=== PATIENT | male | born 1970 | race Caucasian/White ===

== ENCOUNTER 2023-01-21 19:16 | Inpatient (IN) | payer BC, SELFPAY ==
[2023-01-21 19:17] VITALS: BP 144/101; PULSE 89; RESP 16; TEMP 36.9; O2SAT 95; BMI 29.4
[2023-01-21 21:54] VITALS: BP 105/79; PULSE 62; RESP 18; TEMP 36.7; O2SAT 95
[2023-01-21 22:06] LABS: Absolute Lymphocyte Count 2.03 X10^3/uL (0.83-4.51); Absolute Neutrophil Count 7.8 X10^3/uL (2.0-7.7); Basophil# 0.05 X10^3/uL; Basophil% 0.5 % (0-1); Eosinophil# 0.26 X10^3/uL; Eosinophils% 2.4 % (0-5); Hematocrit 46.4 % (40-54); Hemoglobin 16.2 g/dL (13.0-16.5); Lymphocyte # 2.03 X10^3/ul (0.83-4.51); Lymphocyte % 19.1 % (19-41); Mean Corp Hgb Conc 34.9 g/dL (32-36); Mean Corpuscular Hgb 31.1 pg (27.0-32.0); Mean Corpuscular Volume 89.1 fL (80-94); Mean Platelet Vol. 9.1 fl (6.2-12.0); Monocyte# 0.53 X10^3/uL; NRBC Flagged by Analyzer 0 % (0-5); Neutrophil # 7.75 X10^3/uL (2.7-7.7); Neutrophil % 72.7 % (47-70); Platelet Count 309 K/mm3 (150-450); RBC Distribution Width SD 42.4 fl (35.1-43.9); Red Blood Count 5.21 M/mm3 (4.6-6.2); White Blood Count 10.7 K/mm3 (4.4-11.0)
[2023-01-21] MEDS: Diphth,Pertuss(Acell),Tet Vac 0.5 ML Vial IM (22:21)
[2023-01-21 22:22] LABS: Anion Gap 8 (5-15); BUN 11 mg/dL (7-18); BUN/Creat Ratio 9.8 RATIO (10-20); Chloride 106 mmol/L (98-107); Creatinine, Serum 1.12 mg/dL (0.70-1.30); EST Glomerular Filtration Rate 73 mL/min (>60); Est Glom Filt Rate - Afr Amer 89 mL/min (>60); Estimated Creatinine Clearance 87.19 ml/min; Glucose 142 mg/dL (74-106); Potassium 3.5 mmol/L (3.5-5.1); Sodium Level 139 mmol/L (136-145)
[2023-01-21] MEDS: Lidocaine 1% (20 ml mdv) 20 ML Vial INFILT (22:29)
--- NOTE | 2023-01-21 22:41 | EDS_ITS ---
HPI History of Present Illness HPI Narrative: Patient presents with abscess to his right wrist area has been getting worse over the past 2 days. Patient went to urgent care and was referred to the emergency department because he has streaking up his arm. Urgent care was concerned that this could be MRSA. Patient admits to some subjective chills but denies any fevers. Patient states he tried squeezing the abscess area but was unable to get anything out of it. Patient states he has been taking ibuprofen w [facility] has been helping with the pain. Patient describes his pain as aching. Patient states it has been constant. Patient also has a small pustule on the volar aspect of the left distal forearm. There is no fluctuance. There is no active drainage. Chief Complaint: Wound Informant: patient Onset/Context/Timing Onset: Days (2) Context: Gradual Onset Timing: Continuous Quality of Pain: Aching Location: Right wrist Worsened by: Nothing Relieved by: Ibuprofen Associated Symptoms Associated Symptoms: Negative for Parasthesia, Weakness or Loss of Funtion Narrative Tetanus Immunization: Unknown PFSH PFSH Medical History no medical history no medical history Home Medications NK 01/21/23 [History Last Taken Unknown] Allergy/AdvReac Type Severity Reaction Status Date / Time No Known Allergies Allergy Verified 01/21/23 19:19 Surgical History no surgical history no surgical history Social History Smoking Status: Never smoker ROS ROS ED Constitutional Constitutional ED: Reports chills and subjective; Denies fever(s) Eyes Eyes: Denies blurry vision or change in vision ENT ENT ED: Denies rhinorrhea or sore throat Cardiovascular Cardiovascular: Denies chest pain or palpitations Respiratory/Chest Respiratory/Chest: Denies cough or dyspnea Gastrointestinal Gastrointestinal: Denies nausea or vomiting Genitourinary Genitourinary ED: Denies dysuria or hematuria Musculoskeletal Musculoskeletal: Denies back pain or neck pain Integumentary Reports abscess and rash Neurologic Neurologic: Denies headache(s) or weakness Allergic/Immunologic Allergic/Immunologic ED: Denies mouth swelling or urticaria EXAM Physical Exam Const Vital Signs: 01/21/23 19:17 Temperature 98.5 F Temperature Source Temporal Pulse Rate 89 Respiratory Rate 16 Blood Pressure 144/101 H Blood Pressure Mean 115 Pulse Ox 95 Oxygen Delivery Method Room Air Positive well nourished and well developed General Appearance ED: well developed and NAD HEENT Reports moist mucous membranes Neck full ROM and supple Lymph Lymphatic Narrative: There is some mild right axillary lymphadenopathy Extremity Extremity Narrative: There is tenderness, edema, and fluctuance over the radial aspect of the right distal radius. There is no active drainage noted. There is erythematous streaking going up to the right axilla. Radial pulses are equal bilaterally. Sensation was intact to light touch in the radial, median, and ulnar areas. Strength is 5/5 in the radial, median, and ulnar areas. There is also a small indurated pustule over the volar aspect of the left distal forearm. There is no fluctuance. There is no discharge or drainage. There is minimal tenderness over this area. Neuro oriented x3, CN's II-XII intact bilaterally, moves all extremities, no focal motor deficits and no sensory deficits noted Sensorium / Orientation: alert Motor Exam: strength 5/5 throughout Psych mental status grossly normal MDM MDM MDM Narrative Medical decision making narrative: Differential diagnosis includes lymphangitis, abscess, and cellulitis. CBC will be obtained to assess for leukocytosis or anemia. Basic metabolic profile will be obtained to assess for electrolyte abnormality and renal function. Blood cultures will be obtained to assess for bacteremia and sepsis. Lab Data Lab results narrative: CBC was reviewed and was within normal limits. Basic metabolic profile was reviewed and was within normal limits. Labs: Laboratory Results - last 24 hr 01/21/23 01/21/23 21:55 21:55 WBC 10.7 RBC 5.21 Hgb 16.2 Hct 46.4 MCV 89.1 MCH 31.1 MCHC 34.9 RDW Std Deviation 42.4 RDW Coeff of Mattie 13.0 Plt Count 309 MPV 9.1 Immature Gran % (Auto) 0.300 Neut % (Auto) 72.7 H Lymph % (Auto) 19.1 [place] % (Auto) 5.0 Eos % (Auto) 2.4 Baso % (Auto) 0.5 Absolute Neuts (auto) 7.8 H Absolute Lymphs (auto) 2.03 Nucleated RBC % 0 Sodium 139 Potassium 3.5 Chloride 106 Carbon Dioxide 25.0 Anion Gap 8 BUN 11 Creatinine 1.12 Estim Creat Clear Calc 87.19 Est GFR (MDRD) Af Amer 89 Est GFR (MDRD) Non-Af 73 BUN/Creatinine Ratio 9.8 L Glucose 142 H Calcium 9.0 Treatment and Re-Evaluation Narrative: The abscess over the right wrist was cleaned and anesthetized with 1% plain lidocaine locally. The abscess was opened with an 11 blade scalpel with a cruciate incision. Moderate amount of purulent drainage was expressed. Hemostats were used to break up loculations. The abscess was irrigated with normal saline. Bacitracin dressing was applied. Patient was given a dose of Ancef and vancomycin here. Patient was also given tetanus booster. Case was discussed with the hospitalist. Discharge Plan Dx/Rx/DC Orders Clinical Impression: Lymphangitis of upper extremity, Abscess of skin of right wrist Disposition Disposition: Acute Care Hospital [facility]
--- NOTE | 2023-01-21 23:01 | PCM.HP.STD ---
HPI - General General Date of Admission: 01/21/23 Date of Service: 01/21/23 Chief Complaint: R wrist redness, abscess with streaking. HPI Narrative The patient is a 52 y/o M w/ PMHx: EtOH Abuse (3-4 beers daily) who presents to the [facility] ED on 01/21/23 with history of recent abscess to the right wrist which has been worsening of the past 2 days with recent urgent care evaluation and eventual referral to the ED secondary to streaking up his arms with subjective chills without any specific fevers with patient attempting to squeeze the area of the abscess but unable to express anything from it with self administration of ibuprofen which has been assisting with the pain but he describes discomfort ongoing with aching and constant in addition to a small pustule on the volar aspect of the left distal forearm with no fluctuant or active drainage prompting eventual ED evaluation. 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 He notes the discomfort is significantly worsened with any palpation attempt and reports it is sharp stabbing 10 out of 10 otherwise pain is primarily dull aching throb 3 out of 10 in severity at rest. Work-up in the ED included T98.5, heart rate 89, BP 144/101, respiratory rate 16, 95% on room air, CBC with WC 10.7, hemoglobin 16.2, platelet 309 with left shift, BMP with glucose 142 otherwise not marked appearing, blood culture x2 pending per ED. in the ED patient administered IV vancomycin, Ancef, tetanus update. [facility] Medical History Alcohol abuse Medical History no medical history Home Medications NK 01/21/23 [History Last Taken Unknown] Allergy/AdvReac Type Severity Reaction Status Date / Time No Known Allergies Allergy Verified 01/21/23 19:19 Family History (Updated 01/22/23 @ 02:[address] Elenita Triplett MD) Son Diabetes Diabetes mellitus type I Father Prostate CA other (Denies any marked maternal family history including HD, DM, CA.) Surgical History (Updated 01/22/23 @ 02:[address] Elenita Triplett MD) History of dental surgery Surgical History no surgical history Social History (Updated 01/22/23 @ 02:[address] 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 substance use type: does not use ROS ROS Narrative Admission Review of Systems: CONSTITUTIONAL: No weight loss, fever, + chills, weakness or fatigue. HEENT: Eyes: No visual loss, blurred vision, double vision or yellow sclerae. Ears, Nose, Throat: No hearing loss, sneezing, congestion, runny nose or sore throat. SKIN: + Bilateral wrist erythema, induration and abscess although left is significantly less notable in size, right wrist with significant medial indurated region with mild purulent discharge status post I&D but not marked, significantly tender with lymphangitic streaks up the arm. CARDIOVASCULAR: No chest pain, chest pressure or chest discomfort, palpitations, edema, orthopnea, syncopal events. RESPIRATORY: No shortness of breath, cough or sputum, wheezing, hemoptysis. GASTROINTESTINAL: No anorexia, nausea, vomiting or diarrhea, abdominal pain, melena, BRBPR. GENITOURINARY: No dysuria, frequency, urgency or retention. NEUROLOGICAL: No headache, dizziness, syncope, paralysis, ataxia, numbness or tingling in the extremities, focal weakness, change in bowel or bladder control, seizure. MUSCULOSKELETAL: + muscle, back pain, joint pain or stiffness. HEMATOLOGIC: No anemia, bleeding or bruising. LYMPHATICS: No enlarged nodes. No history of splenectomy. PSYCHIATRIC: No history of depression or anxiety. ENDOCRINOLOGIC: No reports of sweating, cold or heat intolerance. No polyuria or polydipsia. ALLERGIES: No history of asthma, hives, eczema or rhinitis. Vital Signs Vital Signs Vital Signs: 01/21/23 19:17 Temperature 98.5 F Temperature Source Temporal Pulse Rate 89 Respiratory Rate 16 Blood Pressure 144/101 H Blood Pressure Mean 115 Pulse Ox 95 Oxygen Delivery Method Room Air Weight Weight: 223 lb Body Mass Index (BMI) 29.4 Physical Exam Narrative Physical Examination: General: Awake, alert, oriented x 3 and cooperative, seated upright in bed, mildly uncomfortable appearing Skin: Normal color, normal turgor, no icterus, no cyanosis except + Bilateral wrist erythema, induration and abscess although left is significantly less notable in size, right wrist with significant medial indurated region with mild purulent discharge status post I&D but not marked, significantly tender with lymphangitic streaks up the arm. HEENT: AT/NC, EOMI, PERRLA, mildly dry MM, no carotid bruits or JVD noted. Lungs: Mildly diminished, greater bases, appropriate for, no rales, ronchi or wheezing. Heart: Currently regular rate and rhythm; no gallop, rub audible. Abdomen: Soft, overweight NTTP, ND, mildly hyperactive BS, no HSM. Extremities: No cyanosis, no clubbing, see skin. Neurological: Patient awake, alert, oriented as noted, cognitive function intact; pupils equally reactive to light and accommodation, cranial nerves II-XII grossly normal, moving all 4 extremities, no focal deficits, strength mildly globally decreased secondary to acute presentation complaint. Psychiatric: Affect appears fatigued, uncomfortable no acute evidence of depressive or anxiety feelings. Results Lab / Micro Data Result Diagrams: 01/21/23 21:55 01/21/23 21:55 Labs: Laboratory Results - last 24 hr 01/21/23 21:55: WBC 10.7, RBC 5.21, Hgb 16.2, Hct 46.4, MCV 89.1, MCH 31.1, MCHC 34.9, RDW Std Deviation 42.4, RDW Coeff of Mattie 13.0, Plt Count 309, MPV 9.1, Immature Gran % (Auto) 0.300, Neut % (Auto) 72.7 H, Lymph % (Auto) 19.1, [place] % (Auto) 5.0, Eos % (Auto) 2.4, Baso % (Auto) 0.5, Absolute Neuts (auto) 7.8 H, Absolute Lymphs (auto) 2.03, Nucleated RBC % 0 01/21/23 21:55: Sodium 139, Potassium 3.5, Chloride 106, Carbon Dioxide 25.0, Anion Gap 8, BUN 11, Creatinine 1.12, Estim Creat Clear Calc 87.19, Est GFR (MDRD) Af Amer 89, Est GFR (MDRD) Non-Af 73, BUN/Creatinine Ratio 9.8 L, Glucose 142 H, Calcium 9.0 Assessment & Plan Assessment/Plan (1) Abscess of skin of right wrist: PLAN: Plan The patient is a 52 y/o M w/ PMHx: EtOH Abuse (3-4 beers daily) who presents to the [facility] ED on 01/21/23 with history of recent abscess to the right wrist which has been worsening of the past 2 days with recent urgent care evaluation and eventual referral to the ED secondary to streaking up his arms with subjective chills without any specific fevers with patient attempting to squeeze the area of the abscess but unable to express anything from it with self administration of ibuprofen which has been assisting with the pain but he describes discomfort ongoing with aching and constant in addition to a small pustule on the volar aspect of the left distal forearm with no fluctuant or active drainage prompting eventual ED evaluation. #1. Right Upper Extremity Cellulitis/wrist with concern for abscess, small L forearm nondraining abscess: Will admit to medical surgical floor, maintain on IV vancomycin will obtain Wound Cx, will obtain Wound MRSA PCR if onset purulent drainage w/ screen also requested, plastic surgery consultation requested for possible I&D, plan repeat CBC in AM, continue affected extremity elevation above heart when seated and in bed, monitor erythema outline with VS checks, as needed pain regimen as well as antiemetic. #2. Elevated BP without HTN diagnosis: Patient denies any hypertensive history, BP elevated above goal upon ED presentation, potentially related with pain and acute presentation #1, we will continue to monitor and in the interim we will maintain on as needed IV hydralazine. #3 hyperglycemia: Admission glucose 142, no DM history, likely associated with acute presentation, HgBA1c pending. #4. EtOH Abuse: Patient notes routine consumption of at least 3-4 beers per day. Will maintain on CIWA protocol, MVI, thiamine and folic acid. Strongly encouraged decreased alcohol intake versus sobriety. Magnesium and phosphorus levels requested. account support manager consultation for substance abuse assist. Patient reports being able to go several days without any alcohol withdrawal symptoms. #5. DVT prophylaxis: SCDs pending surgery evaluation in case of OR needs. Admission Evaluation Time spent evaluating chart, patient history, patient evaluation, care planning and discussion with specialists: 60 minutes. Charges/Coding Visit Charges Inpatient E&M: 72686 Init Hosp L2
[2023-01-21] MEDS: Cefazolin 1 GM/50 ML BAG IV (23:46)
[2023-01-22] VITALS (11 sets, daily range): BP systolic 119–154; BP diastolic 76–91; PULSE 49–82; RESP 12–18; TEMP 36.2–36.9; O2SAT 96–100; BMI 28.5
--- NOTE | 2023-01-22 01:41 | PCM.RX.CS ---
Consult Pharmacy has been consulted to manage selected antiobiotic: Vancomycin Type of Consult: New start Suspected Infection: Skin/Soft tissue Labs: Sodium 139 mmol/L (136-145) 01/21/23 21:55 Potassium 3.5 mmol/L (3.5-5.1) 01/21/23 21:55 Chloride 106 mmol/L (98-107) 01/21/23 21:55 Carbon Dioxide 25.0 mmol/L (21.0-32.0) 01/21/23 21:55 Anion Gap 8 (5-15) 01/21/23 21:55 BUN 11 mg/dL (7-18) 01/21/23 21:55 Creatinine 1.12 mg/dL (0.70-1.30) 01/21/23 21:55 Est GFR (MDRD) Af Amer 89 mL/min (>60) 01/21/23 21:55 Est GFR (MDRD) Non-Af 73 mL/min (>60) 01/21/23 21:55 BUN/Creatinine Ratio 9.8 RATIO (10-20) L 01/21/23 21:55 Glucose 142 mg/dL (74-106) H 01/21/23 21:55 Goal Trough: 15-20 mcg/mL Pharmacy Plan for Drug Dosing: Pharmacy Service will continue to monitor and adjust dosing as required. Medications Vancomycin HCl 2,000 mg/ (Sodium Chloride) 540 mls @ 250 mls/hr IV Q12H KAREEM Discontinued Medications Vancomycin HCl 1,500 mg/ (Sodium Chloride) 530 mls @ 250 mls/hr IV X1 ONE Stop: 01/21/23 23:58 Last Admin: 01/21/23 22:26 Dose: 250 mls/hr Follow-Up Labs: Trough Vancomycin Labs to be done on [date and time ordered]: 01/23 @ 1555
[2023-01-22 02:02] LABS: Magnesium 1.8 mg/dL (1.6-2.6); Phosphorus 1.9 mg/dL (2.5-4.9)
[2023-01-22] MEDS: 0.9% Normal Saline 1,000 ML 125 ML IV (03:03)
[2023-01-22 03:20] LABS: Probe Check PASS; Staph aureus DNA By PCR POSITIVE (Negative)
[2023-01-22 03:21] LABS: M R Staph aureus DNA By PCR POSITIVE (Negative)
[2023-01-22 05:50] LABS: Absolute Lymphocyte Count 2.05 X10^3/uL (0.83-4.51); Absolute Neutrophil Count 4.7 X10^3/uL (2.0-7.7); Basophil# 0.04 X10^3/uL; Basophil% 0.5 % (0-1); Eosinophil# 0.33 X10^3/uL; Eosinophils% 4.2 % (0-5); Hemoglobin 14.5 g/dL (13.0-16.5); Lymphocyte # 2.05 X10^3/ul (0.83-4.51); Lymphocyte % 26.2 % (19-41); Mean Corp Hgb Conc 33.7 g/dL (32-36); Mean Corpuscular Hgb 30.8 pg (27.0-32.0); Mean Corpuscular Volume 91.3 fL (80-94); Monocyte# 0.63 X10^3/uL; Monocyte% 8.1 % (0-10); NRBC Flagged by Analyzer 0 % (0-5); Neutrophil # 4.73 X10^3/uL (2.7-7.7); Neutrophil % 60.6 % (47-70); Platelet Count 268 K/mm3 (150-450); RBC Distribution Width CV 13.2 % (11.6-14.6); RBC Distribution Width SD 44.3 fl (35.1-43.9); Red Blood Count 4.71 M/mm3 (4.6-6.2); White Blood Count 7.8 K/mm3 (4.4-11.0)
[2023-01-22 06:28] LABS: AST(SGOT) 11 U/L (15-37); Alanine Aminotransfer ALT/SGPT 17 U/L (16-61); Albumin, Serum 2.9 g/dL (3.2-5.0); Alkaline Phosphatase 91 U/L (45-117); Anion Gap 7 (5-15); BUN 10 mg/dL (7-18); BUN/Creat Ratio 11.2 RATIO (10-20); Chloride 108 mmol/L (98-107); Creatinine, Serum 0.89 mg/dL (0.70-1.30); EST Glomerular Filtration Rate 95 mL/min (>60); Est Glom Filt Rate - Afr Amer 115 mL/min (>60); Estimated Creatinine Clearance 109.73 ml/min; Glucose 112 mg/dL (74-106); Protein, Total 5.9 g/dL (6.4-8.2); Sodium Level 139 mmol/L (136-145)
[2023-01-22 08:00] LABS: Hemoglobin A1c 5.2 % (3.8-5.6)
--- NOTE | 2023-01-22 09:15 | PN.HOSP_ITS ---
Reason for Visit Reason for Visit: Diagnoses Cutaneous abscess of right upper limb (01/21/23) Subjective Subjective Patient is a 53-year-old gentleman admitted with swelling and redness involving the right wrist Objective Data Objective Data Vital Signs: Vital Signs Temp Pulse Resp BP Pulse Ox O2 Del Method 97.8 F 49 L 14 119/81 H 98 Room Air 01/22/23 05:59 01/22/23 05:59 01/22/23 05:59 01/22/23 05:59 01/22/23 07:26 01/22/23 07:26 Oxygen Delivery Method Room Air Weight: 98.3 kg Body Mass Index (BMI) 28.5 Intake & Output: Intake and Output for Last 24 Hours 01/20/23 01/21/23 01/22/23 23:59 23:59 23:59 Intake Total 837 / 837 Balance 837 / 837 Lab / Micro Data Result Diagrams: 01/22/23 05:24 01/22/23 05:24 Labs: Laboratory Results - last 24 hr 01/21/23 21:55: WBC 10.7, RBC 5.21, Hgb 16.2, Hct 46.4, MCV 89.1, MCH 31.1, MCHC 34.9, RDW Std Deviation 42.4, RDW Coeff of Mattie 13.0, Plt Count 309, MPV 9.1, Immature Gran % (Auto) 0.300, Neut % (Auto) 72.7 H, Lymph % (Auto) 19.1, [place] % (Auto) 5.0, Eos % (Auto) 2.4, Baso % (Auto) 0.5, Absolute Neuts (auto) 7.8 H, Absolute Lymphs (auto) 2.03, Nucleated RBC % 0 01/21/23 21:55: Sodium 139, Potassium 3.5, Chloride 106, Carbon Dioxide 25.0, Anion Gap 8, BUN 11, Creatinine 1.12, Estim Creat Clear Calc 87.19, Est GFR ( RD) Af Amer 89, Est GFR (MDRD) Non-Af 73, BUN/Creatinine Ratio 9.8 L, Glucose 142 H, Calcium 9.0 01/21/23 21:55: Phosphorus 1.9 L, Magnesium 1.8 01/22/23 01:00: S.aureus Protein A PCR POSITIVE H, MRSA (PCR) POSITIVE H 01/22/23 05:24: WBC 7.8, RBC 4.71, Hgb 14.5, Hct 43.0, MCV 91.3, MCH 30.8, MCHC 33.7, RDW Std Deviation 44.3 H, RDW Coeff of Mattie 13.2, Plt Count 268, MPV 9.0, Immature Gran % (Auto) 0.400, Neut % (Auto) 60.6, Lymph % (Auto) 26.2, [place] % (Auto) 8.1, Eos % (Auto) 4.2, Baso % (Auto) 0.5, Absolute Neuts (auto) 4.7, Absolute Lymphs (auto) 2.05, Nucleated RBC % 0 01/22/23 05:24: Sodium 139, Potassium 4.0, Chloride 108 H, Carbon Dioxide 24.0, Anion Gap 7, BUN 10, Creatinine 0.89, Estim Creat Clear Calc 109.73, Est GFR (MDRD) Af Amer 115, Est GFR (MDRD) Non-Af 95, BUN/Creatinine Ratio 11.2, Glucose 112 H, Calcium 8.0 L, Total Bilirubin 0.60, AST 11 L, ALT 17, Alkaline Phosphatase 91, Total Protein 5.9 L, Albumin 2.9 L, Globulin 3.0, Albumin/Globulin Ratio 1.0 01/22/23 05:24: Hemoglobin A1c 5.2 Physical Exam Narrative GENERAL: cooperative HEENT: Atraumatic; normocephalic EYES; Anicteric, Normal Conjunctiva NECK; supple, normal thyroid, RESPIRATORY: Diminished to auscultation CARDIOVASCULAR: Regular S1 S2, GI: soft, normoactive bowel sounds, : No Renal angle tenderness; EXTREMITIES: Area of induration on the lateral aspect of the right wrist with an open wound MUSCULOSKELETAL: no muscle wasting NEURO: Awake; no lateralizing signs. SKIN: No Rash PSYCH; Flat affect Assessment & Plan Assessment/Plan (1) Abscess of skin of right wrist: PLAN: Plan Patient is a 53-year-old gentleman admitted with swelling and redness involving the right wrist 1. Right upper extremity cellulitis involving the wrist with concern for abscess ?. Patient started on broad-spectrum antibiotic therapy with vancomycin for possible concern for MRSA. Consult placed to plastic surgery for possible I&D 2.Chronic alcohol dependence ? Counseled on cessation 3. Elevated blood pressure ? On admission has since resolved . DVT prophylaxis ? Low risk did encourage early ambulation Time spent in the patient's overall evaluation,decision-making process, review of diagnostic data, adjustment of management, discussion with other providers, nursing nursing and ancillary staff involved in patient's care documentation, 35 Minutes Charges/Coding Visit Charges Inpatient E&M: 40938 Subs Hosp L2
--- NOTE | 2023-01-22 11:20 | CASEMGMT ---
RN CM Face to Face with patient for initial transition planning/care coordination assessment. RN CM introduced self and role at [facility]. Patient lying in bed, alert and oriented. Patient willing to participate in assessment and is able to answer all questions appropriately. Care providers, pharmacy, and demographics verified. Patient wishes to discharge home, denies need for home health at this time. Patient states he has no further needs or concerns at this time. CM to follow for discharge planning needs that may arise. PCP: Shahzad Diamond Specialists: none Preferred Pharmacy: [facility] retail at discharge. Insurance: [employer] Prescription Benefit: yes Living Will/HPOA: Xochitl Elliott LNOK: Living Arrangements: Patient lives with in a 2 story home. Patient states he is independent and able to ambulate stairs. Transportation: self, DME/HHC: Patient denies DME in the home. No previous HHC or SNF Disposition Plan: Patient to discharge home with family support and follow-up plans in place. Kailey WALTERN, RN, CM
--- NOTE | 2023-01-22 11:53 | NURSING ---
presurgery checklist completed. pt text family. up to void. vs done. pt to or via bed for i&d.
[2023-01-22 12:17] LABS: M R Staph aureus DNA By PCR POSITIVE (Negative); Probe Check PASS
[2023-01-22] MEDS: Lactated Ringers 1,000 ML 15 ML IV (12:21)
[2023-01-22] MEDS: Lidocaine 1% /Epi 1:100 (20ml) 20 ML Vial (12:55)
--- NOTE | 2023-01-22 13:15 | ABS_PTH ---
PATIENT: MOLLY MIRANDA LOC: [facility] U#:[id number] AGE/SX: 52/M ROOM: [facility] RE01/21/[address]: Dr. Piotr Martinez DO : 1970 BED: 1 DIS: 01/24/2023 SPEC #: [id number] RECD: 01/22/23 16:43 STATUS: FREIDA RESanjuanita #: [id number] DAE: 01/22/23 13:[address]: Pb Love DEPT: SURGICAL PATHOLOGY RECD BY: Dejuan Asencio ENTERED: 01/23/23 08:09 SP TYPE: Abscess OTHR DR: MD Dr. Balwinder Dumont MD No Primary Care Phys Tissues: A - Wrist, NOS B - Forearm, NOS Procedures: Surgery Specimen Level IV HEADER OPERATION: Incision, drainage abscess PRE-OP DIAGNOSIS: Abscess of skin TISSUE SUBMITTED: A ? Right wrist abscess soft tissue, B ? Left forearm abscess soft tissue MICROSCOPIC DIAGNOSIS A. Right wrist abscess soft tissue, biopsy: Skin and soft tissue with ulceration, acute and chronic inflammation and abscess formation. B. Left forearm abscess, biopsy: Skin and soft tissue with ulceration. Skin and soft tissue with ulceration, acute and chronic inflammation and abscess formation. AM:odilon 01/26/2023 MICROSCOPIC DESCRIPTION Slides are reviewed. GROSS DESCRIPTION A - Received in fixative is one container labeled with the patient's name and designated right wrist abscess tissue. The specimen consists of a piece of skin with underlying tissue measuring 2.5 x 2.2 cm and up to 1.0 cm in thickness. The skin surface shows central area of ulceration. Kennel Operator sections are submitted in one cassette. B - Received in fixative is one container labeled with the patient's name and designated left forearm abscess soft tissue. The specimen consists of a piece of skin with underlying tissue measuring 1.1 x 1.0 cm and up to 1.0 cm in thickness. The skin surface shows central area of ulceration. The specimen is bisected and submitted entirely in one cassette. / SJ:odilon 01/23/2023 TC:2 CPT: 08564 x2
--- NOTE | 2023-01-22 13:28 | PCM.CONS.GEN ---
Assessment & Plan Assessment/Plan (1) Abscess of skin of right wrist: (2) Abscess of left forearm: (3) MRSA (methicillin resistant Staphylococcus aureus) infection: PLAN: Plan Medical records reviewed. Labs reviewed. He is currently on Vancomycin for MRSA. It is recommended to take the patient to surgery urgently today to minimize spread of the infection to his hands and proximally to the elbow.? Delaying operative intervention would increase the risk of worsening infection which can be life threatening, suboptimal healing that may affect hand function bilaterally, and depending on the severity of the worsening of the infection, possible amputation. Patient voices understanding of the severity of the infection and wishes to proceed with operative intervention today.? He understands that the wounds will be left open and wound care started with Silver dressing changes. Surgery will be done under general anesthesia and possible tourniquet control. Tissue that is excised and debrided will be sent to Pathology for analysis to rule out carcinoma and to Microbiology for culture. A positive culture will necessitate antibiotic therapy. Patient was informed of the risks and complications of the procedure including alternatives to surgery.? These were discussed with the patient personally.? Patient voices understanding and wishes to proceed. Some of the risks and complications that were discussed included but were not inclusive of failure to diagnose including symptom relief, pain, infection, numbness, stiffness, loss of digit, RSD (CRPS), need for further surgery, contracture, and wound healing problems. Anticipate increased metabolic demands from the infection and the surgical wounds. Encourage nutritional supplementation with protein to help the healing process. Patient states he lives 3 hours away in [place], [place]. He can followup with his PCP after discharge who can refer him to a local wound care center. The wounds should heal in without need for further surgery. However, if there is a plateau during the healing process, can proceed with delayed closure with skin grafting. HPI Consult Data Date of Consult: 01/22/23 PCP / Referring MD: Elenita Triplett MD HPI Narrative Reason for Consultation: MRSA abscess right wrist and distal left forearm HPI Narrative: MOLLY MIRANDA, is a 52 M who presented with painful masses on his right wrist and left distal forearm that have increased in size over the last few days as well as showing increased redness and pain and swelling. He denies trauma. 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 [place] place of employment [place]. Develops moisture and sweating around his hands and wrist at the end of his shift. He denied fever at home. He was admitted and started on IV Vancomycin. DNA by PCR swab was done and was positive for MRSA. His WBC in the ED was 10.7. I was asked to evaluate this patient for surgical options for treatment. [facility] Medical History (Updated 01/24/23 @ 22:[address] Pb Love MD) Abscess of left forearm Abscess of skin of right wrist Alcohol abuse MRSA (methicillin resistant Staphylococcus aureus) infection Open wound of left forearm Open wound of right wrist Medical History no medical history Home Medications doxycycline hyclate 100 mg capsule (Vibramycin) 100 mg PO BID #28 caps 01/24/23 [Rx Last Taken Unknown] Allergy/AdvReac Type Severity Reaction Status Date / Time No Known Allergies Allergy Verified 01/21/23 19:19 Family History Son Diabetes Diabetes mellitus type I Father Prostate CA Family History other Surgical History History of dental surgery Surgical History no surgical history Social History household members: spouse housing: house number of children: 6 current occupational status: employed 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 substance use type: does not use ROS ROS Narrative REVIEW OF SYSTEMS General - Denies fever, fatigue, and weight loss. Eyes - Denies cataracts and glaucoma. ENT - Denies nasal congestion and sore throat. Endocrine - Denies excessive thirst and urination. Skin - Denies suspicious lesions and skin cancer. Musculoskeletal - Denies joint pain, joint stiffness, weakness of muscles and joints, back pain, and arthritis. Neuro - Denies headaches. Cardiovascular - Denies chest pain, fatigue, and shortness of breath with exertion. Psych - Denies anxiety and depression. Respiratory - Denies chronic cough and shortness of breath. Gastrointestinal - Denies nausea, vomiting, diarrhea, and constipation. Hematologic - Denies abnormal bruising and bleeding. Genitourinary - Denies hematuria and urinary frequency. Physical Exam Narrative PHYSICAL EXAMINATION General - Alert and Oriented. HEENT - PERRL. EOMI. Throat is clear. Neck - Supple and nontender. No cervical adenopathy. Lungs - Clear to auscultation. Heart - Regular rate and rhythm. Abdomen - Soft and nondistended. Extremities - FROM. No axillary adenopathy. Radial pulses are palpable. Patient is right hand dominant. On the radial aspect right wrist is an area of redness and swelling and fluctuance. Tender to palpation. Measures 3 cm. On the volar radial aspect distal left forearm is an area of redness and swelling and fluctuance. Tender to palpation. Measures 1.5 cm. Neuro - CN II-XII grossly intact. Psych - Normal mood and affect. Medical Records Data Attestation: I reviewed the patient's medical records Lab / Micro Data Attestation: I reviewed the patient's lab results. Result Diagrams: 01/24/23 06:09 01/24/23 06:09 Labs: Laboratory Results - last 24 hr 01/21/23 21:55: WBC 10.7, RBC 5.21, Hgb 16.2, Hct 46.4, MCV 89.1, MCH 31.1, MCHC 34.9, RDW Std Deviation 42.4, RDW Coeff of Mattie 13.0, Plt Count 309, MPV 9.1, Immature Gran % (Auto) 0.300, Neut % (Auto) 72.7 H, Lymph % (Auto) 19.1, Cassia % (Auto) 5.0, Eos % (Auto) 2.4, Baso % (Auto) 0.5, Absolute Neuts (auto) 7.8 H, Absolute Lymphs (auto) 2.03, Nucleated RBC % 0 01/21/23 21:55: Sodium 139, Potassium 3.5, Chloride 106, Carbon Dioxide 25.0, Anion Gap 8, BUN 11, Creatinine 1.12, Estim Creat Clear Calc 87.19, Est GFR (MDRD) Af Amer 89, Est GFR (MDRD) Non-Af 73, BUN/Creatinine Ratio 9.8 L, Glucose 142 H, Calcium 9.0 01/21/23 21:55: Phosphorus 1.9 L, Magnesium 1.8 01/22/23 01:00: S.aureus Protein A PCR POSITIVE H, MRSA (PCR) POSITIVE H 01/22/23 05:24: WBC 7.8, RBC 4.71, Hgb 14.5, Hct 43.0, MCV 91.3, MCH 30.8, MCHC 33.7, RDW Std Deviation 44.3 H, RDW Coeff of Mattie 13.2, Plt Count 268, MPV 9.0, Immature Gran % (Auto) 0.400, Neut % (Auto) 60.6, Lymph % (Auto) 26.2, Cassia % (Auto) 8.1, Eos % (Auto) 4.2, Baso % (Auto) 0.5, Absolute Neuts (auto) 4.7, Absolute Lymphs (auto) 2.05, Nucleated RBC % 0 01/22/23 05:24: Sodium 139, Potassium 4.0, Chloride 108 H, Carbon Dioxide 24.0, Anion Gap 7, BUN 10, Creatinine 0.89, Estim Creat Clear Calc 109.73, Est GFR (MDRD) Af Amer 115, Est GFR (MDRD) Non-Af 95, BUN/Creatinine Ratio 11.2, Glucose 112 H, Calcium 8.0 L, Total Bilirubin 0.60, AST 11 L, ALT 17, Alkaline Phosphatase 91, Total Protein 5.9 L, Albumin 2.9 L, Globulin 3.0, Albumin/Globulin Ratio 1.0 01/22/23 05:24: Hemoglobin A1c 5.2 01/22/23 09:40: MRSA (PCR) POSITIVE H Micro: Microbiology 01/22/23 01:00 Wound Abcess - Arm Right Gram Stain - Final Charges/Coding Visit Charges Inpatient E&M: 02752 Init Hosp L3 (57 Modifier ICD-10 - L02.413, L02.414, A49.02)
--- NOTE | 2023-01-22 14:39 | PCM.OPRPT ---
Problems Associated Problem List Diagnoses (1) Abscess of skin of right wrist: (2) Abscess of left forearm: (3) Open wound of left forearm: (4) MRSA (methicillin resistant Staphylococcus aureus) infection: (5) Open wound of right wrist: Report of Operation Date of Procedure: 01/22/23 Pre-Operative Diagnosis: 1. MRSA abscess right radial wrist. 2. MRSA abscess volar radial aspect distal left forearm. Post-Operative Diagnosis: 1. MRSA abscess right radial wrist. 2. MRSA abscess volar radial aspect distal left forearm. 3. Open surgical MRSA abscess wound right radial wrist. 4. Open surgical MRSA abscess wound volar radial aspect distal left forearm. Surgery/Procedure Performed:: 1. Surgical preparation right radial wrist with incision and drainage and excisional debridement MRSA abscess (7.5 cm2). 2. Surgical preparation volar radial aspect distal left forearm with incision and drainage and excisional debridement MRSA abscess (1.44 cm2). Description of Surgical Findings:: MOLLY MIRANDA, is a 52 M who presented with painful masses on his right wrist and left distal forearm that have increased in size over the last few days as well as showing increased redness and pain and swelling.? He denies trauma.? 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 His place of employment [place].? Develops moisture and sweating around his hands and wrist at the end of his shift.? He denied fever at home.? He was admitted and started on IV Vancomycin.? Wound DNA by PCR swab was done and was positive for MRSA.? His WBC in the ED was 10.7.? I was asked to evaluate this patient for surgical options for treatment. It is recommended to take the patient to surgery urgently today to minimize spread of the infection to his hands and proximally to the elbow. Delaying operative intervention would increase the risk of worsening infection which can be life threatening, suboptimal healing that may affect hand function bilaterally, and depending on the severity of the worsening of the infection, possible amputation. Patient voices understanding of the severity of the infection and wishes to proceed with operative intervention today. He understands that the wounds will be left open and wound care started with Silver dressing changes. Patient was informed of the risks and complications of the procedure including alternatives to surgery. These were discussed with the patient personally. Patient voices understanding and wishes to proceed. Some of the risks and complications that were discussed included but were not inclusive of failure to diagnose including symptom relief, pain, infection, numbness, stiffness, loss of digit, RSD (CRPS), need for further surgery, contracture, and wound healing problems. Size of wound right radial wrist - 3 x 2.5 x 0.5 cm. Size of wound volar radial aspect distal left forearm - 1.2 x 1.2 x 0.5 cm. Surgeon: Pb Love MD sausage smoker: None Type of Anesthesia: General Anesthesiologist: Keith Bain MD and Codie Gandhi CRNA Specimen's removed: 1. MRSA abscess right radial wrist to Pathology and Microbiology. 2. MRSA abscess volar radial aspect distal left forearm to Pathology and Microbiology. Drains: None. Estimated Blood Loss (mL): 20. Description of Procedure: Patient was taken to OR in supine position and was placed under general anesthesia. Tourniquets were applied. Both upper extremities were prepped and draped in the usual fashion. SCD's were placed for DVT prophylaxis. Perioperative antibiotics were given intravenously. Using xylocaine with epinephrine, the abscesses right radial wrist and volar radial aspect distal left forearm were infiltrated. After waiting 5 minutes for the anesthetic to take effect, I proceeded with surgical preparation with incision and drainage and excisional debridement MRSA abscesses. On the right radial wrist, the pus extended down to the first extensor compartment. The tendons (abductor pollicis longus (APL) and extensor pollicis brevis (EPB)) did not appear to be involved with the infection. The superficial sensory branch radial nerve was seen and preserved. The bleeding was easily controlled with gentle gauze compression and electrocautery so the tourniquet was not applied to the right arm. Half the soft tissue was sent to Pathology for analysis to rule out carcinoma and half the soft tissue was sent to Microbiology for culture. A positive culture will necessitate antibiotic therapy. The size of the wound right radial wrist after incision and drainage and excisional debridement of the MRSA abscess was 3 x 2.5 x 0.5 cm or 7.5 cm2. I then made a circular incision around the abscess volar radial aspect distal left forearm down into the subcutaneous tissue. A lot of thickened pus was seen. It extended down to the flexor carpi radialis (FCR) tendon sheath. The tendon did not appear to be involved with the infection. The bleeding was easily controlled with gentle gauze compression and electrocautery so the tourniquet was not applied to the left arm as well. Half the soft tissue was sent to Pathology for analysis to rule out carcinoma and half the soft tissue was sent to Microbiology for culture. A positive culture will necessitate antibiotic therapy. The size of the wound volar radial aspect distal left forearm after incision and drainage and excisional debridement of the MRSA abscess was 1.2 x 1.2 x 0.5 cm or 1.44 cm2. Both MRSA abscess wounds were dressed with Mepitel nonadherent dressing followed by 4x4 gauze and Betadine followed by dry Kerlix gauze and a compression tressa wrap. Patient tolerated the procedure well and was sent to PACU in satisfactory condition. Patient will be sent upstairs for continued postop care. Will change the dressings tomorrow with Silver dressings. After discharge he will followup at a Wound Center close to his home in [place]. Based on the culture results antibiotic modification may be necessary. He was treated perioperatively with Vancomycin. He will be encouraged to proceed with range of motion exercises to minimize stiffness. If there is a plateau during the healing process, then can proceed with delayed closure with skin grafting. Grafts/Implants Used: None. Procedure Start Time: 13:55 Procedure Stop Time: 14:28 Complications None. Admit VTE Documentation VTE Present on Admission: No VTE Mechan Device Prophylaxis: SCD's VTE Pharm Prophylaxis ordered?: No Addendum Addendum: Surgery Charges CPT - 43241 ICD-10 - S61.501A, S51.802A, L02.413, L02.414, A49.02 36436 L02.413, S61.501A, A49.02 88502 L02.414, S51.802A, A49.02
[2023-01-22] MEDS: Famotidine 20 MG Tablet PO ×2 (17:55→22:48)
[2023-01-22] MEDS: Thiamine Hydrochloride 100 MG Tablet PO (17:55)
[2023-01-22] MEDS: oxyCODONE 5 MG Tablet PO (17:55)
[2023-01-22] MEDS: Multivitamins,Therapeutic Tablet 1 TABLET PO (17:55)
[2023-01-22] MEDS: Folic Acid 1 MG Tablet PO (17:55)
[2023-01-23] VITALS (10 sets, daily range): BP systolic 115–133; BP diastolic 60–91; PULSE 57–72; RESP 14–18; TEMP 36.4–36.9; O2SAT 95–98
[2023-01-23] MEDS: 0.9% Saline Lock 10 ML Syringe IV ×2 (03:49→23:54)
[2023-01-23] MEDS: Folic Acid 1 MG Tablet PO (08:28)
[2023-01-23] MEDS: Multivitamins,Therapeutic Tablet 1 TABLET PO (08:28)
[2023-01-23] MEDS: Famotidine 20 MG Tablet PO ×2 (08:28→23:53)
--- NOTE | 2023-01-23 08:50 | PN.HOSP_ITS ---
Reason for Visit Reason for Visit: Diagnoses Cutaneous abscess of right upper limb (01/21/23) Subjective Subjective Patient underwent Surgery/Procedure Performed:: 1.? Surgical preparation right radial wrist with incision and drainage and excisional debridement MRSA abscess (7.5 cm2). 2.? Surgical preparation volar radial aspect distal left forearm with incision and drainage and excisional debridement MRSA abscess (1.44 cm2). Procedure performed by Dr. Love Objective Data Objective Data Vital Signs: Vital Signs Temp Pulse Resp BP Pulse Ox O2 Del Method 97.7 F L 65 18 120/63 95 Room Air 01/23/23 08:20 01/23/23 08:20 01/23/23 08:20 01/23/23 08:20 01/23/23 08:20 01/23/23 08:20 Oxygen Delivery Method Room Air Weight: 98.3 kg Body Mass Index (BMI) 28.5 Intake & Output: Intake and Output for Last 24 Hours 01/21/23 01/22/23 01/23/23 23:59 23:59 23:59 Intake Total 2737 / 2737 1080 / 1080 Balance 2737 / 2737 1080 / 1080 Lab / Micro Data Result Diagrams: 01/22/23 05:24 01/22/23 05:24 Labs: Laboratory Results - last 24 hr 01/22/23 09:40: MRSA (PCR) POSITIVE H Micro: Microbiology 01/22/23 01:00 Wound Abcess - Arm Right Gram Stain - Final Physical Exam Narrative GENERAL: cooperative HEENT: Atraumatic; normocephalic EYES; Anicteric, Normal Conjunctiva NECK; supple, normal thyroid, RESPIRATORY: Diminished to auscultation CARDIOVASCULAR: Regular S1 S2, GI: soft, normoactive bowel sounds, : No Renal angle tenderness; EXTREMITIES: Area of induration on the lateral aspect of the right wrist with an open wound MUSCULOSKELETAL: no muscle wasting NEURO: Awake; no lateralizing signs. SKIN: No Rash PSYCH; Flat affect Assessment & Plan Assessment/Plan (1) Abscess of skin of right wrist: PLAN: Plan Patient is a 53-year-old gentleman admitted with swelling and redness involving the right wrist 1. Right upper extremity cellulitis involving the wrist with concern for abscess ?. Patient started on broad-spectrum antibiotic therapy with vancomycin for possible concern for MRSA. Consult placed to plastic surgery for possible I&D -Patient underwent Surgery/Procedure Performed:: 1.? Surgical preparation right radial wrist with incision and drainage and excisional debridement MRSA abscess (7.5 cm2). 2.? Surgical preparation volar radial aspect distal left forearm with incision and drainage and excisional debridement MRSA abscess (1.44 cm2). Procedure performed by Dr. Love. Repeat cultures sent awaiting results. Consult also placed to ID 2.Chronic alcohol dependence ? Counseled on cessation 3. Elevated blood pressure ? On admission has since resolved 4. DVT prophylaxis ? Low risk did encourage early ambulation Time spent in the patient's overall evaluation,decision-making process, review of diagnostic data, adjustment of management, discussion with other providers, nursing nursing and ancillary staff involved in patient's care documentation, 35 Minutes Charges/Coding Visit Charges Inpatient E&M: 76164 [facility] Hosp L2
[2023-01-23] MEDS: Thiamine Hydrochloride 100 MG Tablet PO (10:12)
[2023-01-23 10:35] LABS: Phosphorus 1.9 mg/dL (2.5-4.9)
[2023-01-23 10:36] LABS: Vancomycin, Trough Level 19.1 ug/mL (5.0-15.0)
--- NOTE | 2023-01-23 12:57 | PCM.RX.CS ---
Consult Pharmacy has been consulted to manage selected antiobiotic: Vancomycin Type of Consult: Follow-up Suspected Infection: Skin/Soft tissue Prior Doses of Antibiotics Received/Current Regimen: current dose is vanc 2000mg IV q12h Labs: Sodium 139 mmol/L (136-145) 01/22/23 05:24 Potassium 4.0 mmol/L (3.5-5.1) 01/22/23 05:24 Chloride 108 mmol/L (98-107) H 01/22/23 05:24 Carbon Dioxide 24.0 mmol/L (21.0-32.0) 01/22/23 05:24 Anion Gap 7 (5-15) 01/22/23 05:24 BUN 10 mg/dL (7-18) 01/22/23 05:24 Creatinine 0.89 mg/dL (0.70-1.30) 01/22/23 05:24 Est GFR (MDRD) Af Amer 115 mL/min (>60) 01/22/23 05:24 Est GFR (MDRD) Non-Af 95 mL/min (>60) 01/22/23 05:24 BUN/Creatinine Ratio 11.2 RATIO (10-20) 01/22/23 05:24 Glucose 112 mg/dL (74-106) H 01/22/23 05:24 Vancomycin Trough 19.1 ug/mL (5.0-15.0) H 01/23/23 09:35 Microbiology: Microbiology 01/22/23 14:02 Tissue - Arm Left Gram Stain - Final 01/22/23 14:02 Tissue - Arm Left Wound Culture - Preliminary Staphylococcus aureus 01/22/23 14:02 Tissue - Arm Right Gram Stain - Final 01/22/23 14:02 Tissue - Arm Right Wound Culture - Preliminary Staphylococcus aureus 01/22/23 01:00 Wound Abcess - Arm Right Gram Stain - Final 01/22/23 01:00 Wound Abcess - Arm Right Wound Culture - Preliminary Staphylococcus aureus Weight used for dosin.3 kg Estimated Creatinine Clearance: >100ml/min Goal Trough: 15-20 mcg/mL Pharmacy Plan for Drug Dosing: The vanc trough drawn at 09:35 today (approx 10.75 hrs after the previous dose) was 19.1. If drawn closer to the preferred 11 1/2 hour interval, it would have been slightly lower than that. Nevertheless, it is likely not at steady state yet and since it was already near the top of the goal range, recommend to decrease the dose to 1750mg q12h to try to avoid it going above goal range. Repeat another trough before the 4th new dose. Will start the 1750mg tonight since the 2000mg dose had already been hung this morning. Pharmacy Service will continue to monitor and adjust dosing as required. Follow-Up Labs: Trough Vancomycin Labs to be done on [date and time ordered]: 01/25/23 09:30
--- NOTE | 2023-01-23 13:35 | WOUNDNOTE ---
wound photo: left forearm
--- NOTE | 2023-01-23 13:36 | WOUNDNOTE ---
wound photo: right wrist
--- NOTE | 2023-01-23 14:23 | CON.PCM.ID_ITS ---
Assessment & Plan Assessment/Plan (1) Abscess of skin of right wrist: PLAN: Now s/p I&D by Dr. Love 01/22. PCR with MRSA, surg cx with staph aureus. Cont vanc. Plan on po abx (doxy or bactrim) at discharge. Will follow, thank you (2) Abscess of left forearm: (3) MRSA (methicillin resistant Staphylococcus aureus) infection: HPI Consult Data Date of Consult: 01/23/23 HPI Narrative Reason for Consultation: abscess HPI Narrative: MOLLY MIRANDA, is a 52 M who presented with bilateral progressive wrist pain, redness, swelling. No fever or chills. with recent skin abscess. Pt sx started around 01/19. He is R handed. No drainage, tried to paras R wrist with no output. Came to ED, admitted on vanc, taken to OR for I&D, feeling better. Full ROS performed and neg except as noted above. [facility] Medical History Abscess of left forearm Abscess of skin of right wrist Alcohol abuse MRSA (methicillin resistant Staphylococcus aureus) infection Medical History no medical history Home Medications NK 01/21/23 [History Last Taken Unknown] Allergy/AdvReac Type Severity Reaction Status Date / Time No Known Allergies Allergy Verified 01/21/23 19:19 Family History (Updated 01/22/23 @ 02:[address] Elenita Triplett MD) Son Diabetes Diabetes mellitus type I Father Prostate CA Family History other Surgical History (Updated 01/22/23 @ 02:[address] Elenita Triplett MD) History of dental surgery Surgical History no surgical history Social History (Updated 01/22/23 @ 02:[address] 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 substance use type: does not use Physical Exam Const alert, oriented x3 and no apparent distress General Appearance: cooperative HEENT normocephalic and head/scalp atraumatic Eyes PERRL and EOMs intact bilaterally Neck supple and No nodes Resp normal air movement and clear to auscultation bilaterally Cardio regular rate and regular rhythm GI soft to palpation, non-tender and non-distended Extremity General Extremity: Negative for edema Skin Skin Narrative: Bilat wrists wrapped Neuro CN's II-XII intact bilaterally Lab / Micro Data Attestation: I reviewed the patient's lab results. Result Diagrams: 01/22/23 05:24 01/22/23 05:24 Labs: Laboratory Results - last 24 hr 01/23/23 09:35: Vancomycin Trough 19.1 H 01/23/23 09:35: Phosphorus 1.9 L Micro: Microbiology 01/22/23 14:02 Tissue - Arm Left Gram Stain - Final 01/22/23 14:02 Tissue - Arm Left Wound Culture - Preliminary Staphylococcus aureus 01/22/23 14:02 Tissue - Arm Right Gram Stain - Final 01/22/23 14:02 Tissue - Arm Right Wound Culture - Preliminary Staphylococcus aureus 01/22/23 01:00 Wound Abcess - Arm Right Gram Stain - Final 01/22/23 01:00 Wound Abcess - Arm Right Wound Culture - Preliminary Staphylococcus aureus
--- NOTE | 2023-01-23 14:45 | PN.SURG_ITS ---
Subjective Subjective Postop #1 Saw the patient on 01/23/23. Patient is resting comfortably. Tolerated the Silver dressing change. Objective Data Objective Data Vital Signs: Vital Signs Temp Pulse Resp BP Pulse Ox O2 Del Method 97.8 F 51 L 16 133/85 H 96 Room Air 01/24/23 08:33 01/24/23 08:33 01/24/23 08:33 01/24/23 08:33 01/24/23 08:33 01/24/23 08:33 Oxygen Delivery Method Room Air Weight: 216 lb 11.43 oz Body Mass Index (BMI) 28.5 Intake & Output: Intake and Output for Last 24 Hours 01/22/23 01/23/23 01/24/23 23:59 23:59 23:59 Intake Total 2737 / 2737 2501 / 2801 1135.0 / 1135.0 Balance 2737 / 2737 2501 / 2801 1135.0 / 1135.0 Lab / Micro Data Attestation: I reviewed the patient's lab results. Result Diagrams: 01/24/23 06:09 01/24/23 06:09 Labs: Laboratory Results - last 24 hr 01/24/23 06:09: WBC 8.0, RBC 4.67, Hgb 14.3, Hct 43.1, MCV 92.3, MCH 30.6, MCHC 33.2, RDW Std Deviation 44.9 H, RDW Coeff of Mattie 13.3, Plt Count 292, MPV 9.3, Immature Gran % (Auto) 0.400, Neut % (Auto) 55.8, Lymph % (Auto) 32.5, Kendall % (Auto) 6.5, Eos % (Auto) 4.0, Baso % (Auto) 0.8, Absolute Neuts (auto) 4.4, Absolute Lymphs (auto) 2.59, Nucleated RBC % 0 01/24/23 06:09: Sodium 140, Potassium 3.6, Chloride 109 H, Carbon Dioxide 28.0, Anion Gap 3 L, BUN 13, Creatinine 1.09, Estim Creat Clear Calc 89.59, Est GFR (MDRD) Af Amer 91, Est GFR (MDRD) Non-Af 76, BUN/Creatinine Ratio 11.9, Glucose 115 H, Calcium 8.1 L, Magnesium 1.9 Micro: Microbiology 01/22/23 14:02 Tissue - Arm Left Gram Stain - Final 01/22/23 14:02 Tissue - Arm Left Wound Culture - Final Meth. resistant Staph. aureus 01/22/23 14:02 Tissue - Arm Left Anaerobic Culture - Final No anaerobic bacteria isolated. 01/22/23 14:02 Tissue - Arm Right Gram Stain - Final 01/22/23 14:02 Tissue - Arm Right Wound Culture - Final Meth. resistant Staph. aureus 01/22/23 14:02 Tissue - Arm Right Anaerobic Culture - Final No anaerobic bacteria isolated. 01/22/23 01:00 Wound Abcess - Arm Right Gram Stain - Final 01/22/23 01:00 Wound Abcess - Arm Right Wound Culture - Final Meth. resistant Staph. aureus 01/21/23 22:05 Blood Culture (Wb) - Anticubital Right Blood Culture - Preliminary No growth in 48 hours. 01/21/23 21:55 Blood Culture (Wb) - Anticubital Left Blood Culture - Preliminary No growth in 48 hours. Physical Exam Narrative General - Alert and Oriented HEENT - PERRL. EOMI. Neck - Supple and nontender. Abdomen - Soft and nondistended. Extremities - FROM. No axillary adenopathy. Radial pulses are palpable. Wounds on radial right wrist and volar radial aspect distal left forearm are stable No active bleeding noted. No evidence of persistent infection. Tolerated Silver dressing change. Neuro - CN II-XII grossly intact. Psych - Normal mood and affect. Assessment & Plan Assessment/Plan (1) Abscess of skin of right wrist: (2) Abscess of left forearm: (3) MRSA (methicillin resistant Staphylococcus aureus) infection: (4) Open wound of right wrist: (5) Open wound of left forearm: PLAN: Plan Tolerated Silver dressing change. He has family members that can do the Silver dressing changes at home. Cultures show MRSA. Currently on Vancomycin. Will be discharged on po antibiotics per ID recommendations. Followup at local [facility] close to [place]. Wounds should heal with wound care and antibiotics. If there is a plateau during the healing process, can proceed with delayed closure with skin grafting. Encourage range of motion exercises to minimize stiffness.
--- NOTE | 2023-01-24 03:58 | NURSING ---
Emergency charting in use
[2023-01-24 05:56] VITALS: BP 133/93; PULSE 60; RESP 16; TEMP 36.6; O2SAT 96
[2023-01-24 06:43] LABS: Absolute Lymphocyte Count 2.59 X10^3/uL (0.83-4.51); Absolute Neutrophil Count 4.4 X10^3/uL (2.0-7.7); Basophil# 0.06 X10^3/uL; Basophil% 0.8 % (0-1); Eosinophil# 0.32 X10^3/uL; Hematocrit 43.1 % (40-54); Hemoglobin 14.3 g/dL (13.0-16.5); Lymphocyte # 2.59 X10^3/ul (0.83-4.51); Lymphocyte % 32.5 % (19-41); Mean Corp Hgb Conc 33.2 g/dL (32-36); Mean Corpuscular Hgb 30.6 pg (27.0-32.0); Mean Corpuscular Volume 92.3 fL (80-94); Mean Platelet Vol. 9.3 fl (6.2-12.0); Monocyte# 0.52 X10^3/uL; Monocyte% 6.5 % (0-10); NRBC Flagged by Analyzer 0 % (0-5); Neutrophil # 4.44 X10^3/uL (2.7-7.7); Neutrophil % 55.8 % (47-70); Platelet Count 292 K/mm3 (150-450); RBC Distribution Width CV 13.3 % (11.6-14.6); RBC Distribution Width SD 44.9 fl (35.1-43.9); Red Blood Count 4.67 M/mm3 (4.6-6.2)
[2023-01-24 07:22] LABS: Anion Gap 3 (5-15); BUN 13 mg/dL (7-18); BUN/Creat Ratio 11.9 RATIO (10-20); Calcium,Total 8.1 mg/dL (8.5-10.1); Chloride 109 mmol/L (98-107); Creatinine, Serum 1.09 mg/dL (0.70-1.30); EST Glomerular Filtration Rate 76 mL/min (>60); Est Glom Filt Rate - Afr Amer 91 mL/min (>60); Estimated Creatinine Clearance 89.59 ml/min; Glucose 115 mg/dL (74-106); Magnesium 1.9 mg/dL (1.6-2.6); Potassium 3.6 mmol/L (3.5-5.1); Sodium Level 140 mmol/L (136-145)
[2023-01-24 07:44] VITALS: O2SAT 96
[2023-01-24 08:33] VITALS: BP 133/85; PULSE 51; RESP 16; TEMP 36.6; O2SAT 96
[2023-01-24] MEDS: Famotidine 20 MG Tablet PO (08:38)
[2023-01-24] MEDS: Thiamine Hydrochloride 100 MG Tablet PO (08:38)
[2023-01-24] MEDS: Folic Acid 1 MG Tablet PO (08:38)
[2023-01-24] MEDS: Multivitamins,Therapeutic Tablet 1 TABLET PO (08:38)
--- NOTE | 2023-01-24 11:34 | DCINST_ITS ---
Discharge Instructions Diet Discharge Diet: No restrictions Activity Discharge Activity: Return to Normal Activity Return to work on:: 02/02/23 Dressing / Incision Call your doctor if your incision/area has: Increased Pain/ Swelling and Foul Smelling Discharge Call your doctor if you observe: Fever of 101 or Higher Follow Up Care Test Results: Test results from this visit will be discussed in further detail at your follow- up appointment, if applicable. Discharge Plan Admission Admit Date/Time: 01/21/23 23:03 Primary Reason for Your Visit: right upper extremity cellulitis, abcess right wrist, left forearm- MRSA Attending Provider: Piotr Martinez Primary Care Provider: Care Physician,No Primary Consulting Providers: Elenita Triplett ; Pb Love ; Sylvester Galeano ; Balwinder Mcdowell Instructions Additional Instructions / Restrictions: Change dressing daily with application of new Aquacel AG Follow-up with your primary care doctor next week for examination and return to work date Discharge Orders/Prescriptions Prescriptions: New doxycycline hyclate [Vibramycin] 100 mg capsule 100 mg PO BID Qty: 28 0RF Rx Instructions: start on 01/24/23 Referrals / Follow Up: Care Physician,No Primary [Primary Care Provider] - Disposition Disposition (needs filled in before D/C Order can be placed): Home, Self Care
[2023-01-24 11:48] VITALS: BP 133/85; PULSE 51; RESP 16; TEMP 36.6; O2SAT 96
--- NOTE | 2023-01-24 13:37 | DS.PCM_ITS ---
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 Routine Comment: Reason for Consult:: bilateral arm wounds 01/23/23 09:23 Consult: Infectious Disease Routine Consulting Provider: Sylvester Galeano Reason for Consult: cellulitis EMERGENT Consult: No Notified: Yes Date Notified: 01/23/23 Time Notified: 09:23 Method of Notification: Answering Service Reason For Visit: CELLULITIS, ABSCESS Diagnosis Discharge Diagnosis (1) Abscess of skin of right wrist: Status: Acute Code(s): L02.413 - Cutaneous abscess of right upper limb (2) Abscess of left forearm: Status: Acute Code(s): L02.414 - Cutaneous abscess of left upper limb (3) MRSA (methicillin resistant Staphylococcus aureus) infection: Status: Acute Code(s): A49.02 - Methicillin resistant Staphylococcus aureus infection, unspecified site Plan 1. Abscess of the right wrist with methicillin-resistant Staph aureus #2 abscess of the left forearm with methicillin-resistant Staph aureus Medications at Discharge Home Medications doxycycline hyclate 100 mg capsule (Vibramycin) 100 mg PO BID #28 caps 01/24/23 Hospital Course Operations - (Incision and drainage of right wrist abscess with excisional debridement, incision and drainage and excisional debridement abscess left forearm) Procedures None Summary of Care Provided Minutes Spent on Discharge: 31 Hospital Course: Patient was seen in the emergency room at [facility] with complaints of redness and localized swelling of his right wrist area x48 hours, patient had gone to an urgent care and was referred to the emergency department. Patient also had a small pustule on the ventral surface of the left forearm. Labs obtained in the emergency room revealed a normal white blood cell count, patient's chemistry profile was unremarkable, the abscess over the right wrist area was cleaned and anesthetized with 1% lidocaine in the emergency room and the abscess was opened with a #11 scalpel blade, moderate amount of purulent drainage was expressed and this was sent for culture. Patient was given IV Ancef and vancomycin in the ER and was admitted to PCU. He was seen in consultation by plastic surgery and infectious diseases, patient's culture grew out MRSA, the patient went for debridement of the affected areas, he had no untoward events during his hospitalization. On 01/24/2023, patient was seen and examined: On examination he appeared in good health and spirits. Vital signs as documented. Skin warm and dry and without overt rashes. Neck without JVD, neck was supple, trachea midline, thyroid was normal. Lungs clear bilaterally, normal air movement was noted. Heart exam notable for regular rhythm, normal sounds and absence of murmurs, rubs or gallops. Abdomen unremarkable and without evidence of organomegaly, masses, or abdominal aortic enlargement. Bowel sounds are present, abdomen is not distended. Extremities-patient's right and left forearms are wrapped with Damian wrap and surgical dressing, this was not removed for examination. Neuro: Cranial nerves II through XII are grossly intact, no focal motor deficits were noted, sensation to light touch and pinprick intact, motor exam 5/5 throughout. Psych: Patient is alert and oriented x3, he does not appear anxious or depressed, he does not appear agitated. Talked with plastic surgery (Dr. Love) on 01/24/2023, he was okay with the patient being discharged and he recommended follow-up with the patient's PCP due to the fact [place]. I talked with the patient's by phone about his discharge and instructed her to get him an appointment with his PCP next week for follow-up care. Patient was discharged in stable condition on 01/24/2023. Weight / BMI Weight Weight: 98.3 kg Body Mass Index (BMI) 28.5 ABG / Lab / Microbiology Data Result Diagrams: 01/24/23 06:09 01/24/23 06:09 Laboratory: Laboratory Results - last 24 hr 01/24/23 06:09: WBC 8.0, RBC 4.67, Hgb 14.3, Hct 43.1, MCV 92.3, MCH 30.6, MCHC 33.2, RDW Std Deviation 44.9 H, RDW Coeff of Mattie 13.3, Plt Count 292, MPV 9.3, Immature Gran % (Auto) 0.400, Neut % (Auto) 55.8, Lymph % (Auto) 32.5, Carlton % (Auto) 6.5, Eos % (Auto) 4.0, Baso % (Auto) 0.8, Absolute Neuts (auto) 4.4, Absolute Lymphs (auto) 2.59, Nucleated RBC % 0 01/24/23 06:09: Sodium 140, Potassium 3.6, Chloride 109 H, Carbon Dioxide 28.0, Anion Gap 3 L, BUN 13, Creatinine 1.09, Estim Creat Clear Calc 89.59, Est GFR (MDRD) Af Amer 91, Est GFR (MDRD) Non-Af 76, BUN/Creatinine Ratio 11.9, Glucose 115 H, Calcium 8.1 L, Magnesium 1.9 Microbiology: Microbiology 01/22/23 14:02 Tissue - Arm Left Gram Stain - Final 01/22/23 14:02 Tissue - Arm Left Wound Culture - Final Meth. resistant Staph. aureus 01/22/23 14:02 Tissue - Arm Left Anaerobic Culture - Final No anaerobic bacteria isolated. 01/22/23 14:02 Tissue - Arm Right Gram Stain - Final 01/22/23 14:02 Tissue - Arm Right Wound Culture - Final Meth. resistant Staph. aureus 01/22/23 14:02 Tissue - Arm Right Anaerobic Culture - Final No anaerobic bacteria isolated. 01/22/23 01:00 Wound Abcess - Arm Right Gram Stain - Final 01/22/23 01:00 Wound Abcess - Arm Right Wound Culture - Final Meth. resistant Staph. aureus 01/21/23 22:05 Blood Culture (Wb) - Anticubital Right Blood Culture - Prel iminary No growth in 48 hours. 01/21/23 21:55 Blood Culture (Wb) - Anticubital Left Blood Culture - Preliminary No growth in 48 hours. D/C Instructions Discharge Diet: No restrictions Return to work on: 02/02/23 Call your doctor if your incision/area has: Increased Pain/ Swelling and Foul Smelling Discharge Call your doctor if you observe: Fever of 101 or Higher Meaningful Use Info Meaningful Use Diagnoses (Choose all that apply): None applicable Discharge Plan Admission Admit Date/Time: 01/21/23 23:03 Primary Reason for Your Visit: right upper extremity cellulitis, abcess right wrist, left forearm- MRSA Attending Provider: Piotr Martinez Primary Care Provider: Care Physician,No Primary Consulting Providers: Elenita Triplett ; Pb Love ; Sylvester Galeano ; Balwinder Sood Instructions Additional Instructions / Restrictions: Change dressing daily with application of new Aquacel AG Follow-up with your primary care doctor next week for examination and return to work date Discharge Orders/Prescriptions Prescriptions: New doxycycline hyclate [Vibramycin] 100 mg capsule 100 mg PO BID Qty: 28 0RF Rx Instructions: start on 01/24/23 Referrals / Follow Up: Care Physician,No Primary [Primary Care Provider] - Disposition Disposition (needs filled in before D/C Order can be placed): Home, Self Care Charges/Coding Visit Charges Inpatient E&M: 78504 Disch Hosp >30min
== END 2023-01-24 13:06 | disposition home or self-care (01) | DRG 572 ==
LOC: ED 23:07 → PCU 23:16
PROVIDERS: Internal Medicine; Surgery; Admitting Provider Family Medicine; Emergency Provider Emergency Medicine; Visit Provider Internal Medicine
PROC: 0JBG0ZZ Excision of Right Lower Arm Subcutaneous Tissue and Fascia, Open Approach (ICD-10-PCS; principal; 2023-01-22 13:05)
DX: L02.414 Cutaneous abscess of left upper limb (principal); A49.02 Methicillin resistant Staphylococcus aureus infection, unspecified site; F10.10 Alcohol abuse, uncomplicated; S61.501A Unspecified open wound of right wrist, initial encounter; S51.802A Unspecified open wound of left forearm, initial encounter; R73.9 Hyperglycemia, unspecified; L02.413 Cutaneous abscess of right upper limb; R03.0 Elevated blood-pressure reading, without diagnosis of hypertension; Z80.42 Family history of malignant neoplasm of prostate; Y90.9 Presence of alcohol in blood, level not specified
CPT/HCPCS: 36415; 80048; 80053; 80202; 83036; 83735; 84100; 85025; 87040; 87070; 87075; 87077; 87102; 87186; 87205; 87206; 87640; 87641; 88304; 88305; 90715; 93005; 99284; J7030; J7040; J7050; J7120; A4216; J2405